=== PATIENT | female | born 1985 | race Caucasian/White ===

== ENCOUNTER 2017-07-26 18:59 | Emergency (ER) | payer OTHER ==
[~2017-07-26] VITALS: Ht 167.6 cm; Wt 93.4 kg
--- OUTSIDE RECORDS SUMMARY | 2017-07-26 19:02 | XMS REPORT | Clinical Summary ---
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 Disp. Refills Start End Date Status Date [id number] Take 1 tablet by mouth Active (CEREFOLIN) 6-5-50-1 mg daily. tablet vit Take by mouth. Active [id number]-gzpv-[id number]-dha ( + DHA) 28 mg iron- 975 mcg-200 mg combo pack levothyroxine (SYNTHROID, TAKE 1 TABLET BY MOUTH 30 tablet 0 07/03/19 Active LEVOXYL) 175 mcg tablet EVERY MORNING 18 metroNIDAZOLE (FLAGYL) Take 500 mg by mouth 2 07/03/19 Discontin 500 MG tablet (two) times a day. For 7 18 ued days levothyroxine (SYNTHROID, Take 175 mcg by mouth 06/06/20 Discontin LEVOXYL) 175 mcg tablet every morning. 17 ued nitrofurantoin, Take 100 mg by mouth 2 07/03/19 Discontin macrocrystal-monohydrate, (two) times a day. Take 18 ued (MACROBID) 100 MG capsule with food for 7 days terconazole (TERAZOL 7) Insert 1 applicator into 07/03/19 Discontin 0.4 % vaginal cream the vagina nightly. For 7 18 ued days promethazine (PHENERGAN) 1/2 to 1 po q 6hrs prn 30 tablet 1 06/05/20 07/03/19 Discontin 25 MG tabletIndications: n/v 17 18 ued care, subsequent , first trimester, 12 weeks gestation of , Hypothyroid in , antepartum, first trimester ondansetron ODT Take 1 tablet (8 mg 30 tablet 1 06/05/20 07/03/19 Discontin (ZOFRAN-ODT) 8 MG total) by mouth every 8 17 18 ued disintegrating (eight) hours as needed tabletIndications: for nausea or vomiting care, subsequent for up to 30 days. , first trimester, 12 weeks gestation of , Hypothyroid in , antepartum, first trimester levothyroxine (SYNTHROID, Take 1 tablet (175 mcg 30 tablet 0 06/06/20 07/03/19 Discontin LEVOXYL) 175 mcg tablet total) by mouth every 17 18 ued morning. Active Problems Problem Noted Date 06/05/2017 Overview: x 3, CF neg last pregancy Encounters Date Type Specialty Care Team Description 07/03/2017 Routine Obstetrics and Gynecology Edmond Barnhart MD [place]: 16w3d 07/03/2017 Refill Obstetrics and Gynecology Edmond Barnhart MD 06/08/2017 Telephone Obstetrics and Gynecology Jennifer Ospina MA 06/08/2017 Telephone Obstetrics and Gynecology Peg Alcaraz MA 06/06/2017 Telephone Obstetrics and Gynecology Peg Alcaraz MA 06/05/2017 Initial Obstetrics and Gynecology Edmond Barnhart MD [place]: 12w3d 05/25/2017 Abstract Obstetrics and Gynecology Edmond Barnhart MD after 07/25/2016 Family History Medical History Relation Name Comments Heart disease Father Heart disease Sister Relation Name Status Comments Father Sister Social History Tobacco Use Types Packs/Day Years Used Date Never Smoker Smokeless Tobacco: Never Used Alcohol Use Drinks/Week oz/Week Comments No Currently Estimated Date of Delivery Comments Yes 12/15/2017 Based on last menstrual period of 03/10/2017 Sex Assigned at Date Recorded Not on file Last Filed Vital Signs Vital Sign Reading Time Taken Blood Pressure 118/83 07/03/2017 9:54 AM [employer] Pulse - - Temperature - - Respiratory Rate - - Oxygen Saturation - - Inhaled Oxygen - - Concentration Weight 88.9 kg (196 lb) 07/03/2017 9:54 AM [employer] Height - - Body Mass Index - - Plan of Treatment Date Type Specialty Care Team Description 07/31/2017 Routine Obstetrics and Gynecology Edmond Barnhart MD [address] [facility] [address] [place] [id number] Health Maintenance Due Date Last Done Comments PAP SMEAR 09/13/2013 09/13/2010 INFLUENZA VACCINE 01/24/2017 Results * Maternal serum screen AFP [facility] (07/03/2017 10:41 AM) Component Value Ref Range Interpretation Comment: Screen negative for open NTD. Risk for ONTD <1 IN 5000 Alpha fetoprotein 25.5 ng/mL Mom for AFP 0.93 Comment Comment: This patient's LIN (estimated date of delivery) was used to calculate the gestational age. Performance of maternal AFP provides a useful screening test for detection of open neural tube defects. The single AFP marker is not recommended for Down syndrome and other chromosomal abnormalities screening. Much greater sensitivity is achieved with multiple markers, such as AFP, hCG, unconjugated estriol, and/or dimeric inhibin A, as recommended by the [employer]. It should be noted that normal test results can never guarantee the of a normal baby and that 2-3% of newborns have some type of physical or mental defect, many of which are undetectable through any known diagnostic technique. Comment Comment: This is a screening test, not a diagnostic test. This risk assessment report is based in part on demographic data provided by the ordering physician. Please notify the laboratory promptly if any data are incorrect. For assistance with recalculations, please call your local [facility] laboratory. For assistance with interpretation of these results, please contact your Local [facility] genetic counselor or call [phone]). Interpretive Cutoffs Screen Positive for Open NTD: > or=2.50 adjusted MOM > or=1.90 adjusted MOM for Insulin-dependent diabetics > or=4.00 adjusted MOM for twins > or=3.50 adjusted MOM for Twins insulin-dependent diabetics > or=4.50 adjusted MOM for triplets Calc'd gestational age 16.4 weeks Maternal weight 196 lbs Estimated due date 12/15/2017 LIN determined by LMP Mother's ethnic origin Number of fetuses 1 Insulin depend diabetic NO Repeat specimen NO Hx of neural tube defects NO Prev down synd NO Donor egg NO Donor age: egg retrieval NOT GIVEN Specimen Performing Laboratory [facility] * POC urinalysis dipstick (07/03/2017 10:18 AM) Only the most recent of 2 results within the time period is included. Component Value Ref Range Color urine, POC Yellow Clarity urine, POC Clear Glucose urine, POC Negative Negative Bilirubin urine, POC Negative Negative Ketones urine, POC Negative Negative Specific gravity urine, 1.010 1.005 - 1.030 POC Blood urine, POC Negative Negative pH urine, POC 5.5 5.0, 5.5, 6.0, 6.5, 7.0, 7.5, 8.0, 8.5 Protein urine, POC Negative Negative Urobilinogen urine, POC <2.0 <2.0 Nitrite urine, POC Negative Negative Leukocyte esterase urine, Negative Negative POC Specimen Performing Laboratory [facility] * Rubella Immune Status (06/05/2017 9:58 AM) Component Value Ref Range Rubella IgG antibody 1.39 index Comment: Index Interpretatio n ----- - <0.90 Not consistent with Immunity 0.90-0.99 Equivocal > or=1.00 Consistent with Immunity The presence of rubella IgG antibody suggests immunization or past or current infection with rubella virus. Specimen Performing Laboratory [facility] * RPR titer with reflex to confirmation (06/05/2017 9:58 AM) Component Value Ref Range RPR (dx) w/refl titer and NON-REACTIVE NON-REACTIVE confirmatory testing Specimen Performing Laboratory [facility] * Hepatitis C antibody (06/05/2017 9:58 AM) Component Value Ref Range Hepatitis C Ab NON-REACTIVE NON-REACTIVE Signal/cutoff 0.06 <1.00 Specimen Performing Laboratory [facility] * Thyroid Panel (06/05/2017 9:58 AM) Component Value Ref Range T3 uptake 21 (L) 22 - 35 % T4 7.7 4.5 - 12.0 mcg/dL Free T4 index 1.6 1.4 - 3.8 Specimen Performing Laboratory [facility] * ABO and Rh (06/05/2017 9:58 AM) Component Value Ref Range ABO grouping O Rh type RH(D) POSITIVE Specimen Performing [facility] * Hepatitis B surface antigen (06/05/2017 9:58 AM) Component Value Ref Range Hepatitis B surface Ag NON-REACTIVE NON-REACTIVE Specimen Performing [facility] * CBC with platelet and differential (06/05/2017 9:58 AM) Component Value Ref Range WBC 8.4 3.8 - 10.8 Thousand/uL RBC 4.15 3.80 - 5.10 Million/uL HGB 12.7 11.7 - 15.5 g/dL HCT 38.0 35.0 - 45.0 % MCV 91.6 80.0 - 100.0 fL MCH 30.6 27.0 - 33.0 pg MCHC 33.4 32.0 - 36.0 g/dL RDW 13.1 11.0 - 15.0 % Platelet count 259 140 - 400 Thousand/uL MPV 10.9 7.5 - 12.5 fL Neutrophils, absolute 6443 1500 - 7800 cells/uL Lymphocytes, absolute 1075 850 - 3900 cells/uL Monocytes, absolute 487 200 - 950 cells/uL Eosinophils, absolute 353 15 - 500 cells/uL Basophils, absolute 42 0 - 200 cells/uL Neutrophils 76.7 % Lymphocytes 12.8 % Monocytes 5.8 % Eosinophils 4.2 % Basophils + RC 0.5 % Specimen Performing [facility] * Antibody screen (06/05/2017 9:58 AM) Component Value Ref Range Antibody screen, RBC NO ANTIBODIES DETECTED w/refl ID, titer and Ag Comment: Reference range No antibodies detected This assay is a screening test for the detection of red blood cell antibodies. The test is not to be used for pretransfusion screening or for the medical management of an alloimmunized . Specimen Performing Laboratory [facility] * Thyroid stimulating hormone (06/05/2017 9:58 AM) Component Value Ref Range TSH 24.72 (H) mIU/L Comment: Reference Range > or=20 Years 0.40-4.50 Ranges First trimester 0.26-2.66 Second trimester 0.55-2.73 Third trimester 0.43-2.91 Specimen Performing Laboratory [facility] * T4, free (06/05/2017 9:58 AM) Component Value Ref Range T4, free 0.8 0.8 - 1.8 ng/dL Specimen Performing Laboratory [facility] after 07/25/2016
[2017-07-26] MEDS ORDERED: ACETAMINOPHEN 325 MG TAB PO ONE (19:30)
[2017-07-26 20:16] LABS: BILIRUBIN,URINE NEGATIVE (NEGATIVE); COLOR,URINE YELLOW (YELLOW); KETONES,URINE NEGATIVE (NEGATIVE); LEUKOCYTE ESTERASE ,URINE NEGATIVE (NEGATIVE); NITRITE,URINE NEGATIVE (NEGATIVE); PROTEIN,URINE DIPSTICK NEGATIVE (NEGATIVE); URINE UROBILINOGEN 0.2 mg/dL (0.2 - 1)
[2017-07-26 20:20] LABS: CLARITY,URINE SL CLOUDY (CLEAR)
[2017-07-26 20:27] LABS: EPITHELIAL CELLS,URINE MODERATE /LPF; RBC,URINE 0-5 /HPF (0-5); WBC,URINE (MAN) 0-5 /HPF (0-5)
[2017-07-26 20:37] LABS: INFLUENZAE A&B ANTIGEN (RAPID) NEGATIVE (NEGATIVE)
[2017-07-26 20:44] LABS: STREPTOCOCCUS GRP A ANTIGEN NEGATIVE (NEGATIVE)
== END 2017-07-26 22:49 | disposition home or self-care (01) ==
LOC: ER 18:59
DX: J30.2 Other seasonal allergic rhinitis (principal); Z33.1 Pregnant state, incidental
CPT/HCPCS: 81001; 83518; 87070; 87400; 99282